=== PATIENT | male | born 1985 | race Caucasian/White ===

== ENCOUNTER 2022-07-06 21:24 | Emergency (ER) | payer OTHER ==
[~2022-07-06] VITALS: Ht 170.2 cm; Wt 68.0 kg
[~2022-07-06 21:24] MED LIST: ALBU0.0912 INH
[2022-07-06 21:25] VITALS: BP 113/84
--- NOTE | 2022-07-06 21:33 | NUR ---
TO LOBBY FOLLOWING TRIAGE
[2022-07-06] MEDS ORDERED: ALBUTEROL SULFATE/IPRATROPIU 3 ML SOL IH ONE (22:45)
[2022-07-06] MEDS ORDERED: ALBUTEROL 0.083% 2.5 MG/3 ML NEBU INH ONE (22:45)
[2022-07-06] MEDS ORDERED: predniSONE 20 MG TAB PO ONE (22:45)
--- NOTE | 2022-07-06 22:50 | NUR ---
Patient lying in bed, A/Ox4, chest rise and fall symmetrical, no s/s of distress
[2022-07-06] MEDS ORDERED: PRED20TA5 PO (23:22)
[2022-07-06] MEDS ORDERED: ALBU0.0912 INH (23:22)
[2022-07-06 23:31] VITALS: BP 108/75
== END 2022-07-06 23:30 | disposition home or self-care (01) ==
LOC: MED 21:24
DX: J45.901 Unspecified asthma with (acute) exacerbation (principal); R06.02 Shortness of breath; R07.89 Other chest pain; Z79.899 Other long term (current) drug therapy; Z98.890 Other specified postprocedural states
CPT/HCPCS: 94640; 99283; J7512; J7613